=== PATIENT | female | born 1975 | race Caucasian/White ===

== ENCOUNTER 2023-08-22 09:07 | Outpatient (OUT) | payer BC, OTHER, SELFPAY ==
--- NOTE | 2023-08-22 09:11 | CT_ITS ---
The [address] [address] Patient Name: KEVEN ROBB MRN: [id number] date: 1975 Sex: F Assigned Patient Location: CT Current Patient Location: CT Accession/Order Number: [id number] Exam Date: 08/22/2023 10:15 Report Date: 08/22/2023 11:22 At the request of: NON-STAFF PHYSICIAN Procedure: CT abdomen pelvis w con EXAM: CT abdomen pelvis w con HISTORY: Diarrhea Unspecified R19.7, Nausea R11.2 COMPARISON: None. TECHNIQUE: Axial CT images were obtained of the abdomen and pelvis with intravenous contrast. Multiplanar reconstructions were performed. ABDOMEN/PELVIS FINDINGS: Lower Chest: Unremarkable. Liver: Hepatic steatosis is present. Biliary/Gallbladder: Unremarkable. Pancreas: Unremarkable. Spleen: Unremarkable. Adrenal Glands: Unremarkable. Kidneys: Unremarkable. Gastrointestinal/Peritoneum: No acute findings. There are no dilated loops of bowel. The appendix is unremarkable. No free air or free fluid. Vascular: Unremarkable. Lymph Nodes: No enlarged lymph nodes by CT size criteria. Pelvic Organs: Fallopian tube occlusion devices are present. Bladder: Unremarkable. Bones: No acute osseous abnormality. Advanced degenerative disc disease is present at L4-L5, otherwise no significant degenerative changes are present in the visualized spine. Soft tissues: There is a small fat-containing umbilical hernia. CT/CT abdomen pelvis w con IMPRESSION: 1. No acute abnormality of the abdomen and pelvis. 2. Hepatic steatosis. 3. Advanced degenerative disc disease at L4-L5, otherwise, no significant degenerative changes in the visualized spine. 4. Small fat-containing umbilical hernia. 5. Fallopian tube occlusion devices present. Electronically authenticated by: MERVAT QUEEN Date: 08/22/2023 11:22
[2023-08-22 11:20] LABS: Erythrocyte Sedimentation Rate 19 mm/hr (<=20)
[2023-08-22 12:28] LABS: Thyroid Stimulating Hormone 0.354 uIU/mL (0.358-3.740)
[2023-08-22 12:29] LABS: C Reactive Protein <0.50 mg/dL (<=0.50)
[2023-08-23 11:08] LABS: HIV Ab/p24 Ag Screen Non Reactive (Non Reactive)
[2023-08-23 15:08] LABS: Deamidated Gliadin Abs, IgA 5 units (0-19); Deamidated Gliadin Abs, IgG 2 units (0-19); Endomysial Antibody IgA Negative (Negative); Immunoglobulin A, Qn, Serum 104 mg/dL (87-352); t-Transglutaminase (tTG) IgA <2 U/mL (0-3); t-Transglutaminase (tTG) IgG <2 U/mL (0-5)
== END 2023-08-22 09:08 | disposition home or self-care (01) ==
LOC: CT 09:07
PROVIDERS: PCP Family Medicine
DX: R19.7 Diarrhea, unspecified (principal); R11.2 Nausea with vomiting, unspecified; R63.4 Abnormal weight loss; K76.0 Fatty (change of) liver, not elsewhere classified; K42.9 Umbilical hernia without obstruction or gangrene
CPT/HCPCS: 36415; 74177; 82784; 84443; 85652; 86140; 86231; 86258; 86364; 87389; Q9967

== ENCOUNTER 2023-08-26 15:16 | Outpatient (OUT) | payer BC, OTHER, SELFPAY ==
--- OUTSIDE RECORDS SUMMARY | 2023-08-26 15:19 | XMS_ITS | CCD ---
Author Name Unknown Address [address] [place] [address] Organization [facility] Care Team Providers Care Vac Press Operator Name Role Phone Unavailable Primary Care Provider Unavailbonifacio e BINDU MCCOLLUM Admitting Unavailable BINDU MCCOLLUM Attending Unavailable MISC, DR CALERO Primary Care Unavailable BINDU MCCOLLUM Consulting Unavailable BINDU MCCOLLUM Admitting Unavailable BINDU MCCOLLUM Attending Unavailable MISC, DR CALERO Primary Care Unavailable BINDU MCCOLLUM Consulting Unavailable DR MONSE JIMENEZ Admitting Unavailable BARBARA, DR MONSE Sage Attending Unavailable MISC, DR CALERO Primary Care Unavailable NADMARCELINO, DR MONSE Sage Consulting Unavailable Asaad, Imad Unavailable Allergies Allergy Classification Reported Allergen(s) Allergy Type Date of Onset Reaction(s) Facility (1 source) Codeine Drug Allergy 7 Hives, Vomiting [facility] (1 source) Codeine Drug Allergy 7 [facility] (1 source) Codeine Drug Allergy vomiting/hives [facility] Other (1 source) Codeine Drug Allergy hives [facility] Other Medications Current Medications Medication Drug Class(es) Dates Sig (Normalized) Sig (Original) acetaminophen 325 mg oral tablet (1 source) take 1 tablet by mouth every four hours Tylenol 325 MG 1 tablet as needed Orally every 4 hrs Active Lizz Allergy 180 MG (1 source) take 1 tablet by mouth once daily Lizz Allergy 180 MG 1 tablet Swallow whole with water; do not take with fruit juices. Orally Once a day Active famotidine 20 mg oral tablet (1 source) Histamine-2 Receptor Antagonist take 1 tablet by mouth every twenty-four hours Pepcid 20 MG 1 tablet at bedtime as needed Orally Once a day Active Completed/Discontinued Medications Medication Drug Class(es) Dates Sig (Normalized) Sig (Original) diphenhydrAMINE hydrochloride 25 mg oral tablet (1 source) Histamine-1 Receptor Antagonist take 1 tablet by mouth twice daily diphenhydrAMINE (DIPHEDRYL) 25 mg tablet Take 25 mg by mouth twice daily. 0 Active Comment on above: Take 25 mg by mouth twice daily. enteric contrast (will be provided with radiology test) (1 source) Start: 09-14-2019 enteric contrast (will be provided with radiology test) For CT CHESTABD/PEL W IVCON Routine order Administer, As Directed One Time Only, via Oral, Rectal, both Oral and Rectal, Enteric Tube, Stoma or Indwelling Catheter, Enteric Contrast as designated per enteric contrast guidelines 1 Each 0 09/14/2019 Active Comment on above: For CT CHESTABD/PEL W IVCON Routine order Administer, As Directed One Time Only, via Oral, Rectal, both Oral and Rectal, Enteric Tube, Stoma or Indwelling Catheter, Enteric Contrast as designated per enteric contrast guidelines ibuprofen 800 mg oral tablet (1 source) Nonsteroidal Anti-inflammatory Drug take 1 tablet by mouth every six hours as needed ibuprofen (MOTRIN) 800 mg tablet Take 800 mg by mouth every 6 hours as needed. 0 Active Comment on above: Take 800 mg by mouth every 6 hours as needed. iv contrast (will be provided with radiology test) (3 sources) Start: 01-18-2020 iv contrast (will be provided with radiology test) CT ABD/PEL -Inject, intravenously, once for 1 dose.No IV access, insert saline lock prior to the beginning of sedation, infusion, injection of imaging exam. Discontinue saline lock post exam. If Pt. has a central line or IVAD, may access for administration according to line specific nursing protocol. Once exam is complete flush line and de-access according to line specific nursing protocol in the CT contrast administration guidelines link. 1 Each 0 01/18/2020 Active Start: 01-18-2020 iv contrast (w ill be provided with radiology test) CT Chest W -Inject, intravenously, once for 1 dose.No IV access, insert saline lock prior to the beginning of sedation, infusion, injection of imaging exam. Discontinue saline lock post exam. If Pt. has a central line or IVAD, may access for administration according to line specific nursing protocol. Once exam is complete flush line and de-access according to line specific nursing protocol in the CT contrast administration guidelines link. 1 Each 0 01/18/2020 Active Start: 09-14-2019 iv contrast (w ill be provided with radiology test) CT Chest ABD/PEL-Inject, intravenously, once for 1 dose.No IV access, insert saline lock prior to the beginning of sedation, infusion, injection of imaging exam. Discontinue saline lock post exam. If Pt. has a central line or IVAD, may access for administration according to line specific nursing protocol. Once exam is complete flush line and de-access according to line specific nursing protocol in the CT contrast administration guidelines link. 1 Each 0 09/14/2019 Active Comment on above: CT Chest ABD/PEL-Inj ect, intravenously, once for 1 dose.No IV access, insert saline lock prior to the beginning of sedation, infusion, injection of imaging exam. Discontinue saline lock post exam. If Pt. has a central line or IVAD, may access for administration according to line specific nursing protocol. Once exam is complete flush line and de-access according to line specific nursing protocol in the CT contrast administration guidelines link. CT ABD/PEL -Inject, intravenously, once for 1 dose.No IV access, insert saline lock prior to the beginning of sedation, infusion, injection of imaging exam. Discontinue saline lock post exam. If Pt. has a central line or IVAD, may access for administration according to line specific nursing protocol. Once exam is complete flush line and de-access according to line specific nursing protocol in the CT contrast administration guidelines link. CT Chest W -Inject, intravenously, once for 1 dose.No IV access, insert saline lock prior to the beginning of sedation, infusion, injection of imaging exam. Discontinue saline lock post exam. If Pt. has a central line or IVAD, may access for administration according to line specific nursing protocol. Once exam is complete flush line and de-access according to line specific nursing protocol in the CT contrast administration guidelines link. Naproxen (1 source) Nonsteroidal Anti-inflammatory Drug naproxen (NAPROSYN ORAL) Take by mouth. 0 Active Comment on above: Take by mouth. Problems Active Problems Problem Classification Problem Date Documented Da te Episodic/Chronic Cancer of breast (3 sources) Malignant neoplasm of female breast; Translations: [Malignant neoplasm of unspecified site of unspecified female breast] Onset: 12-17-2016 12-17-2016 Chronic Cancer of breast (2 sources) Personal history of primary malignant neoplasm of breast; Translations: [Personal history of malignant neoplasm of breast] Episodic Complication of device; implant or graft (1 source) Late effect of medical and surgical care complication; Translations: [Breakdown (mechanical) of breast prosthesis and implant, sequela] Episodic Nausea and vomiting (2 sources) Nausea and vomiting; Translations: [Nausea with vomiting, unspecified] Episodic Nonmalignant breast conditions (1 source) Deformity of reconstructed breast; Translations: [Deformity of reconstructed breast] Episodic Other gastrointestinal disorders (1 source) Diarrhea; Translations: [Diarrhea, unspecified] Episodic Other gastrointestinal disorders (1 source) Diarrhea, unspecified Episodic Other nutritional; endocrine; and metabolic disorders (1 source) Weight decreased; Translations: [Abnormal weight loss] Episodic Other nutritional; endocrine; and metabolic disorders (1 source) Abnormal weight loss Episodic Residual codes; unclassified (1 source) Absence of breast; Translations: [Acquired absence of bilateral breasts and nipples] Episodic Residual codes; unclassified (1 source) Breast cancer genetic marker of susceptibility positive; Translations: [Genetic susceptibility to malignant neoplasm of breast] Episodic Unclassified (3 sources) CONTACT W/AND (SUSP) EXPOS COVID-19; Translations: [CONTACT W/AND (SUSP) EXPOS COVID-19] Onset: 09-29-2022 Past or Other Problems Problem Classification Problem Date Documented Da te Episodic/Chronic Unclassified (1 source) CONTACT W/AND (SUSP) EXPOS COVID-19; Translations: [CONTACT W/AND (SUSP) EXPOS COVID-19] Onset: 09-27-2022 Results Test Name Value Interpretation Reference Range Facil ity CBC AUTO DIFFon 01-07-2023 BASO # 0.1 103/ul Normal 0.0-0.1 [facility] Comment on above: Performed By: #### C BC #### [facility] [address] [place], [place] [address] Dr. Rosalva Cox Basophils/100 WBC (Bld) 0.8 % Normal 0.2-2.0 [facility] Comment on above: Performed By: #### C BC #### [facility] [address] [place], [place] [address] Dr. Rosalva Cox EO # 0.3 103/ul Normal 0.0-0.7 [facility] Comment on above: Performed By: #### C BC #### [facility] [address] [place] [address] Dr. Rosalva Cox Eosinophils/100 WBC (Bld) 3.9 % Normal 0.9-7.0 [facility] Comment on above: Performed By: #### C BC #### [facility] [address] [place] [address] Dr. Rosalva Cox Erythrocyte distribution width (RBC) [Ratio] 13.9 % Normal 11.0-15.0 [facility] Comment on above: Performed By: #### C BC #### [facility] [address] [place] [address] Dr. Rosalva Cox Hematocrit (Bld) [Volume fraction] 48.0 % Normal 36.0-48.0 [facility] Comment on above: Performed By: #### C BC #### [facility] [address] [place] [address] Dr. Rosalva Cox Hemoglobin (Bld) [Mass/Vol] 16.4 g/dL Critically high 12.0-16.0 [facility] Comment on above: Performed By: #### C BC #### [facility] [address] [place] [address] Dr. Rosalva Cox IG # 0.01 10e3/ul Normal 0.00-0.03 [facility] Comment on above: Performed By: #### C BC #### [facility] [address] [place] [address] Dr. Rosalva Cox IG % 0.1 % Normal 0.0-0.5 [facility] Comment on above: Performed By: #### C BC #### [facility] [address] [place] [address] Dr. Rosalva Cox LYMPH # 2.2 103/ul Normal 1.2-3.8 [facility] [place] [facility] Comment on above: Performed By: #### C BC #### [facility] [address] [place] [address] Dr. Rosalva Cox Lymphocytes/100 WBC (Bld) 27.4 % Normal 20.5-60.0 [facility] [place] [facility] Comment on above: Performed By: #### C BC #### [facility] [address] [place] [address] Dr. Rosalva Cox MANUAL DIFF REQ NO Normal [facility] Comment on above: Performed By: #### C BC #### [facility] [address] [place] [address] Dr. Rosalva Cox MCH (RBC) [Entitic mass] 32.4 pg Normal 26.7-34.0 [facility] Comment on above: Performed By: #### C BC #### [facility] [address] [place] [address] Dr. Rosalva Cox MCHC (RBC) [Mass/Vol] 34.2 g/dL Normal 29.9-35.2 [facility] Comment on above: Performed By: #### C BC #### [facility] [address] [place] [address] Dr. Rosalva Cox MCV (RBC) [Entitic vol] 94.9 fL Normal 81.0-99.0 [facility] Comment on above: Performed By: #### C BC #### [facility] [address] [place] [address] Dr. Rosalva Cox MONO # 0.3 103/ul Normal 0.3-0.8 [facility] Comment on above: Performed By: #### C BC #### [facility] [address] [place] [address] Dr. Rosalva Cox Monocytes/100 WBC (Bld) 4.0 % Normal 1.7-12.0 [facility] Comment on above: Performed By: #### C BC #### [facility] [address] [place] [address] Dr. Rosalva Cox NEUT # 5.1 103/ul Normal 1.4-6.5 [facility] [place] [facility] Comment on above: Performed By: #### C BC #### [facility] [address] [place] [address] Dr. Rosalva Cox Neutrophils/100 WBC (Bld) 63.8 % Normal 43.0-75.0 [facility] Comment on above: Performed By: #### C BC #### [facility] [address] [place] [address] Dr. Rosalva Cox Platelet mean volume (Bld) [Entitic vol] 10.2 fL Normal 9.5-13.5 [facility] Comment on above: Performed By: #### C BC #### [facility] [address] [place] [address] Dr. Rosalva Cox PLT 298 103/ul Normal 150-450 [facility] [place] [facility] Comment on above: Performed By: #### C BC #### [facility] [address] [place] [address] Dr. Rosalva Cox RBC 5.06 106/ul Normal 4.20-5.40 [facility] [place] [facility] Comment on above: Performed By: #### C BC #### [facility] [address] [place] [address] Dr. Rosalva Cox WBC 8.0 103/ul Normal 4.0-11.0 [facility] [place] [facility] Comment on above: Performed By: #### C BC #### [facility] [address] [place] [address] Dr. Rosalva Cox LIPID PROFILEon 01-07-2023 CHOL-HDL RATIO NORM SEE BELOW Normal [facility] [place] [facility] Comment on above: Result Comment: 3.3 - 4.4 LOW RISK 4.4 - 7.1 AVERAGE RISK 7.1 - 11.0 MODERATE RISK >11.0 HIGH RISK Performed By: #### T SH, T4, CMP, LIPID #### [facility] [address] [place] [address] Dr. Rosalva Cox Cholesterol [Mass/Vol] 215 mg/dL Critically high <=200 [facility] [place] [facility] Comment on above: Performed By: #### T SH, T4, CMP, LIPID #### [facility] [address] [place] [address] Dr. Rosalva Cox Cholesterol in HDL [Mass/Vol] 48 mg/dL Normal 40-60 [facility] [place] [facility] Comment on above: Performed By: #### T SH, T4, CMP, LIPID #### [facility] [address] [place] [address] Dr. Rosalva Cox Cholesterol in LDL [Mass/Vol] 95.6 mg/dL Normal [facility] Comment on above: Performed By: #### T SH, T4, CMP, LIPID #### [facility] [address] [address] [address] Rosalva Cox Cholesterol.total/ Cholesterol in HDL [Mass ratio] 4.5 {ratio} Normal [facility] Comment on above: Performed By: #### T SH, T4, CMP, LIPID #### [facility] [address] [address] [address] Rosalva Cox HDL NORMAL > or = 60 mg/dl - LO W CARDIOVASCULAR RISK <40 mg/dl - HIGH CARDIOVASCULAR RISK Normal [facility] Comment on above: Performed By: #### T SH, T4, CMP, LIPID #### [facility] [address] [address] [address] Rosalva Cox LDL CALC NORMAL SEE BELOW Normal [facility] Comment on above: Result Comment: <100 mg/dl OPTIMAL 100 - 129 mg/dl NEAR OR ABOVE OPTIMAL 130 - 159 mg/dl BORDERLINE HIGH 160 - 189 mg/dl HIGH >190 mg/dl VERY HIGH Performed By: #### T SH, T4, CMP, LIPID #### [facility] [address] [address] [address] Rosalva Cox Triglyceride [Mass/Vol] 357 mg/dL Critically high <=150 [facility] Comment on above: Performed By: #### T SH, T4, CMP, LIPID #### [facility] [address] [address] [address] Rosalva Cox VLDL CALC 71.4 mg/dL Normal [facility] Comment on above: Performed By: #### T SH, T4, CMP, LIPID #### [facility] [address] [address] [address] Rosalva Cox PROF 14(COMP METB)on 023 Albumin [Mass/Vol] 4.3 g/dL Normal 3.4-5.0 [facility] Comment on above: Performed By: #### T SH, T4, CMP, LIPID #### [facility] [address] [place] [address] Dr. Rosalva Cox Albumin/Globulin [Mass ratio] 1.0 {ratio} Normal [facility] Comment on above: Performed By: #### T SH, T4, CMP, LIPID #### [facility] [address] [address] [address] Rosalva Cox ALP [Catalytic activity/Vol] 158 U/L Critically high 46-116 [facility] Comment on above: Performed By: #### T SH, T4, CMP, LIPID #### [facility] [address] [place] [address] Dr. Rosalva Cox ALT [Catalytic activity/Vol] 64 U/L Critically high 14-59 [facility] Comment on above: Performed By: #### T SH, T4, CMP, LIPID #### [facility] [address] [place] [address] Dr. Rosalva Cox Anion gap [Moles/Vol] 12.7 mmol/L Normal [facility] Comment on above: Performed By: #### T SH, T4, CMP, LIPID #### [facility] [address] [place] [address] Dr. Rosalva Cox AST [Catalytic activity/Vol] 79 U/L Critically high 15-37 [facility] Comment on above: Performed By: #### T SH, T4, CMP, LIPID #### [facility] [address] [place] [address] Dr. Rosalva Cox Bilirubin [Mass/Vol] 0.6 mg/dL Normal 0.2-1.0 [facility] Comment on above: Performed By: #### T SH, T4, CMP, LIPID #### [facility] [address] [place] [address] Dr. Rosalva Cox Calcium [Mass/Vol] 9.7 mg/dL Normal 8.5-10.1 [facility] Comment on above: Performed By: #### T SH, T4, CMP, LIPID #### [facility] [address] [place] [address] Dr. Rosalva Cox Chloride [Moles/Vol] 102 mmol/L Normal 98-107 [facility] Comment on above: Performed By: #### T SH, T4, CMP, LIPID #### [facility] [address] [address] [address] Rosalva Cox CO2 [Moles/Vol] 30.3 mmol/L Normal 21.0-32.0 [facility] Comment on above: Performed By: #### T SH, T4, CMP, LIPID #### [facility] [address] [address] [address] Rosalva Cox Creatinine [Mass/Vol] 0.76 mg/dL Normal 0.55-1.02 [facility] Comment on above: Performed By: #### T SH, T4, CMP, LIPID #### [facility] [address] [address] [address] Rosalva Cox EGFR-AF ROMANIAN >60 Normal >=60 [facility] Comment on above: Performed By: #### T SH, T4, CMP, LIPID #### [facility] [address] [address] [address] Rosalva Cox EGFR-NON AF ROMANIAN >60 Normal >=60 [facility] Comment on above: Performed By: #### T SH, T4, CMP, LIPID #### [facility] [address] [address] [address] Rosalva Cox Globulin (S) [Mass/Vol] 4.3 g/dL Normal [facility] Comment on above: Performed By: #### T SH, T4, CMP, LIPID #### [facility] [address] [address] [address] Rosalva Cox Glucose [Mass/Vol] 112 mg/dL Critically high 74-106 [facility] Comment on above: Performed By: #### T SH, T4, CMP, LIPID #### [facility] [address] [address] [address] Rosalva Cox Potassium [Moles/Vol] 4.0 mmol/L Normal 3.5-5.1 [facility] Comment on above: Performed By: #### T SH, T4, CMP, LIPID #### [facility] [address] [address] [address] Rosalva Cox Protein [Mass/Vol] 8.6 g/dL Critically high 6.4-8.2 [facility] Comment on above: Performed By: #### T SH, T4, CMP, LIPID #### [facility] [address] [place] [address] Dr. Rosalva Cox Sodium [Moles/Vol] 141 mmol/L Normal 136-145 [facility] Comment on above: Performed By: #### T SH, T4, CMP, LIPID #### [facility] [address] [place] [address] Dr. Rosalva Cox Urea nitrogen [Mass/Vol] 17.0 mg/dL Normal 7.0-18.0 [facility] Comment on above: Performed By: #### T SH, T4, CMP, LIPID #### [facility] [address] [place] [address] Dr. Rosalva Cox Urea nitrogen/Creatinin e [Mass ratio] 22.4 mg/mg Normal [facility] Comment on above: Performed By: #### T SH, T4, CMP, LIPID #### [facility] [address] [place] [address] Dr. Rosalva Cox T4on 01-07-2023 T4 [Mass/Vol] 7.50 ug/dL Normal 4.80-13.90 [facility] Comment on above: Performed By: #### T SH, T4, CMP, LIPID #### [facility] [address] [place] [address] Dr. Rosalva Cox TSHon 01-07-2023 TSH 0.868 uIU/mL Normal 0.358-3.740 [facility] Comment on above: Performed By: #### T SH, T4, CMP, LIPID #### [facility] [address] [place] [address] Dr. Rosalva Cox INFLUENZA A AND B AGon 09-27 INFLUANEGH SEE BELOW Normal [facility] Comment on above: Result Comment: Nega tive for Flu A protein angiten. Infection due to Flu A cannot be ruled out. Flu A angiten in the sample may be below the detection limit of the test. Performed By: #### I NFLUAB #### [facility] [address] [address] [address] Rosalva Cox INFLUBNEGH SEE BELOW Normal [facility] Comment on above: Result Comment: Nega tive for Flu B protein antigen. Infection due to Flu B cannot be ruled out. Flu B antigen in the sample may be below the detection limit of the test. Performed By: #### I NFLUAB #### [facility] [address] [place] [address] Dr. Rosalva Cox INFLUENZA A AG Negative Normal NEGATIVE SEE COMMENT [facility] Comment on above: Performed By: #### I NFLUAB #### [facility] [address] [place] [address] Dr. Rosalva Cox INFLUENZA B AG Negative Normal NEGATIVE SEE COMMENT [facility] Comment on above: Performed By: #### I NFLUAB #### [facility] [address] [place] [address] Dr. Rosalva Cox [facility]06 SARS-CoV-2 (COVID-19) RNA VALERY+probe Ql (Unsp spec) Not detected Normal NOT DETECTED [facility] Comment on above: Result Comment: When diagnostic testing is negative, the possibility of a false negative should be considered in the context of a patient's recent exposures and the presence of clinical signs and symptoms consistent with SARS-CoV-2. This test is not yet approved or cleared by the [place] FDA. When there are no FDA-approved or cleared tests available, and other criteria are met, FDA can make tests available under an emergency access mechanism called an Emergency Use Authorization (EUA). The EUA for this test is supported by the [place] of Health and Human Service's declaration that circumstances exist to justify the emergency use of in vitro diagnostics for the detection and/or diagnosis of the virus that causes COVID-19. This EUA will remain in effect for the duration of the COVID-19 declaration justifying emergency of IVDs, unless it is terminated or revoked by the FDA (after which the test may no longer be used). Performed By: #### C VDTBH #### [facility] [address] [place] [address] Dr. Rosalva Bailey 02-18-2022 CNPN Telephone (HEMASA) KEVEN ROBB ([id number]) 1975 F Date Time Provider Department 02/18/22 ANNEMARIE NUNO During your visit today, we recorded the following information about you: Annemarie Nuno RN 02/18/2022 12:03 PM Signed Received call from pt requesting appt with Dr Vasques for new lump in right breast. Pt has not been seen since 09/2019 for history of breast cancer. ALEX: Ok to schedule pt to see you for new problem or would you like her to see her PCP. RONNELL Esparza MD 02/18/2022 8:02 PM Signed I will be happy to see her next week, Tuesday Gregoria Bob Sec 02/19/2022 9:20 AM Signed Called patient and her voice mail is full PSS please schedule patient for 30 min est patient new problem 11:30 Tuesday with brea have her here at 11:00 Camelia Lay Don 02/22/2022 8:30 AM Signed Tried calling patient AND spouse however, both vm are full. Efrain Vasques MD 02/22/2022 8:55 PM Signed Thanks Allergies As of Date: 02/18/2022 Noted Allergy Reaction CODEINE SULFATE 12/14/2016 4 - Hives 11 - Vomiting Date Reviewed: 09/14/2019 Reviewed by: Efrain Nance) Brea - Fully Assessed Reason for Visit: Appointment [186] Breast Problem [16] Prescriptions as of 02/23/2022 - iv contrast (will be provided with radiology test) CT ABD/PEL -Inject, intravenously, once for 1 dose.No IV access, insert saline lock prior to the beginning of sedation, infusion, injection of imaging exam. Discontinue saline lock post exam. If Pt. has a central line or IVAD, may access for administration according to line specific nursing protocol. Once exam is complete flush line and de-access according to line specific nursing protocol in the CT contrast administration guidelines link. - iv contrast (will be provided with radiology test) CT Chest W -Inject, intravenously, once for 1 dose.No IV access, insert saline lock prior to the beginning of sedation, infusion, injection of imaging exam. Discontinue saline lock post exam. If Pt. has a central line or IVAD, may access for administration according to line specific nursing protocol. Once exam is complete flush line and de-access according to line specific nursing protocol in the CT contrast administration guidelines link. - naproxen (NAPROSYN ORAL) Take by mouth. - diphenhydrAMINE (DIPHEDRYL) 25 mg tablet Take 25 mg by mouth twice daily. - iv contrast (will be provided with radiology test) CT Chest ABD/PEL-Inject, intravenously, once for 1 dose.No IV access, insert saline lock prior to the beginning of sedation, infusion, injection of imaging exam. Discontinue saline lock post exam. If Pt. has a central line or IVAD, may access for administration according to line specific nursing protocol. Once exam is complete flush line and de-access according to line specific nursing protocol in the CT contrast administration guidelines link. - enteric contrast (will be provided with radiology test) For CT CHESTABD/PEL W IVCON Routine order Administer, As Directed One Time Only, via Oral, Rectal, both Oral and Rectal, Enteric Tube, Stoma or Indwelling Catheter, Enteric Contrast as designated per enteric contrast guidelines - tamoxifen (NOLVADEX) 20 mg tablet Take 1 tablet (20 mg) by mouth once daily. - ibuprofen (MOTRIN) 800 mg tablet Take 800 mg by mouth every 6 hours as needed. Problem List As Of Date 02/18/2022 Noted Resolved Malignant neoplasm of female breast (HCC) [C50.*12/17/2016 Malignant neoplasm of upper-outer quadrant of r*12/21/2016 Encounter Status:Closed by ANNEMARIE GILLILAND on 02/23/22 Normal [facility] Vital Signs Date Time Vital Sign Value Performing Clinician Facility 07-26-2023 13:30-0500 Body height 172.72 cm Imad Asaad Other [facility] Other 07-26-2023 13:30-0500 Body mass index (BMI) [Ratio] 23.72 kg/m2 Imad Asaad Other [facility] Other 07-26-2023 13:30-0500 Body weight 70.76 kg Imad Asaad Other [facility] Other 07-26-2023 13:30-0500 Diastolic blood pressure 70 mm[Hg] Imad Asaad Other [facility] Other 07-26-2023 13:30-0500 Systolic blood pressure 118 mm[Hg] Imad Asaad Other [facility] Other Encounters Encounter Date Encounter Type Care Provider Facility Start: 07-26-2023 End: 07-26-2023 ambulatory Imad Asaad Other [facility] Other Start: 07-26-2023 Office outpatient ne w 45 minutes Imad Asaad [facility] Start: 01-07-2023 End: 01-08-[address] MONSE JIMENEZ Facility:[facility] Start: 09-27-2022 End: 09-27-2022 ambulatory BINDU MCCOLLUM Facility:[facility] Start: 09-26-2022 End: 09-26-2022 ambulatory BINDU MCCOLLUM Facility:[facility] Start: 02-18-2022 Telephone encounter Annemarie Nuno RN Hematology/Oncology Comment on above: Appointment; Breast Problem Plan of Treatment Date Care Activity Detail Author Start: 05-06-2022 Influenza vaccination INFLUENZA (Sea son Ended) [facility] Start: 2019 COLOGUARD (FIT-DNA) COLOGUARD (FIT-D NA) [facility] Start: 2019 Colonoscopy COLONOSCOPY [facility] Start: 2019 COLORECTAL CANCER SCREENING COLORECTAL CANCER SCREENING [facility] Start: [address] COLONOGRAPHY [facility] Start: 2019 DIABETES SCREEN DIABETES SCREEN [facility] Start: 2019 FECAL OCCULT BLOOD FECAL OCCULT BLOO D [facility] Start: 2019 LIPID SCREEN LIPID SCREEN [facility] Start: [address] [facility] Start: 2014 Mammography MAMMOGRAM [facility] Start: 2004 HPV TESTING HPV TESTING [facility] Start: 1995 PAP TESTING PAP TESTING [facility] Start: 1993 Urine microalbumin profile DTAP,TDAP ,TD (1 - Tdap) [facility] Start: 1992 HEPATITIS C SCREENING HEPATITIS C SC REENING [facility] Start: 1992 HIV SCREENING HIV SCREENING [facility] Start: 1986 Adult depression scr eening assessment DEPRESSION SCREENING [facility] Start: 1979 COVID-19 VACCINE (#1) COVID-19 VACCI NE (#1) [facility] Payers Date Payer Category Payer Unknown [id number] 2019 Unknown MMO MMO [employer] [id number] 2019-Present [phone] [address] [place] [address] PPO [id number] 1974 Unknown [id number] 1974 Unknown [id number] 1959 Self-pay 1959 Unknown [id number] Unknown [id number] Social History Date Type Detail Facility Start: 12-14-2016 Tobacco smoking status NHIS Smokes tobacco daily [facility] History of tobacco use Cigarette Smoker [facility] Start: 12-14-2016 Tobacco use and exposure Smokeless tobacco non-user [facility] Start: 09-14-2019 Alcohol intake Current non-dr agency service representative of alcohol (finding) [facility] Start: 1975 Sex Assigned At Not on file [facility] Sex Assigned At Sex Assigned At Bir th [facility] Other Evaluation note 07-26-2023 Note Date & Type Note Facility 07-26-2023 Evaluation note Encounter Date Diagnosis Assessment Notes Jul, Diarrhea (ICD-10 - R19.7) Jul, Nausea & vomiting (ICD-10 - R11.2) PATIENT HAS CHRONIC NAUSEA FOR YEARS. Jul, Weight loss, unintentional (ICD-10 - R63.4) PATIENT HAS [facility] Other Note 02-22-2022 Telephone Encounter - Efrain aVsques MD - 02/22/2022 8:55 PM EDTTelephone Encounter - Camelia Ochoa - 02/22/2022 8:27 AM EDTTelephone Encounter - Gregoria Ozuna - 02/19/2022 9:19 AM EDT Note Date & Type Note Facility 02-22-2022 Miscellaneous Notes Thanks Tried calling patient & spouse however, both vm are full. Called patient and her voice mail is full PSS please schedule patient for 30 min est patient new problem 11:30 Tuesday with brea have her here at 11:00 I will be happy to see her next week, Tuesday Received call from pt requesting appt with Dr Vasques for new lump in right breast. Pt has not been seen since 09/2019 for history of breast cancer. ALEX: Ok to schedule pt to see you for new problem or would you like her to see her PCP. Annemarie Nuno, RN documented in this encounter [facility] History general Narrative - Reported 11-02-2016 Note Date & Type Note Facility 11-02-2016 History general N arrative - Reported Type Medical History Breast cancer, right Surgical History essure Surgical History Lumpectomy 11/02/16 Surgical History breast reconstruction Surgical History right breast lumpect ashlee lymph node dissection 11/2016 Surgical History bilateral masectomy with tissue expanders insertion 04/2017 Surgical History bilateral mastectomy Surgical History bilateral breast reconstruction 04/2017 Surgical History 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/2017 Surgical History Breast implant surgery 08/2017 Surgical History Hospitalization History childbirth [facility] Other Summary Purpose Family History No Family History Records FoundNo Family History Records Found Advance Directives No Advanced Directives Records FoundNo Advanced Directives Records Found Additional Source Comments Source Comments (unrecognize d section and content) In the event this informatio n is protected by the Federal Confidentiality of Alcohol and Drug Abuse Patient Records regulations: The Federal rules restrict any use of the information to criminally investigate or prosecute any alcohol or drug abuse patient.[facility] Reason for Visit (unrecogniz ed section and content) PATIENT IS HERE WITH COMPLAI NTS OF DIARRHEA/NAUSEA/VOMITTING Reason Comments Appointment Breast Problem INFORMATION SOURCE (unrecogn ized section and content) DATE CREATED AUTHOR 02/24/2022 [facility] DATE CREATED AUTHOR 'S WILLIS ATION 01/08/2023 [facility] FOR RECORDS PERTAINING TO PATIENTS WHO ARE OR HAVE BEEN ENROLLED IN A CHEMICAL DEPENDENCY/SUBSTANCEABUSE PROGRAM, SOME INFORMATION MAY BE OMITTED. This clinical summary was aggregated from multiple sources. Caution should be exercised in using it in the provision of clinical care. This summary normalizes information from multiple sources, and as a consequence, information in this document may materially change the coding, format and clinical context of patient data. In addition, data may be omitted in some cases. CLINICAL DECISIONS SHOULD BE BASED ON THE PRIMARY CLINICAL RECORDS. [facility] [employer] [facility]. provides no warranty or guarantee of the accuracy or completeness of information in this document.
[2023-08-26 15:30] LABS: Basophils Absolute Auto 0.1 10^3/uL (0.0-0.1); Basophils Percent Auto 0.7 % (0.2-2.0); Eosinophils Absolute Auto 0.4 10^3/uL (0.0-0.7); Eosinophils Percent Auto 3.6 % (0.9-7.0); Hematocrit 43.2 % (36.0-48.0); Hemoglobin 14.7 g/dL (12.0-16.0); Immature Granulocytes Abs Auto 0.01 10^3/uL (0.00-0.03); Immature Granulocytes Pct Auto 0.1 % (0.0-0.5); Lymphocytes Absolute Auto 2.7 10^3/uL (1.2-3.8); Lymphocytes Percent Auto 25.1 % (20.5-60.0); Mean Corpuscular Hemoglobin 33.9 pg (26.7-34.0); Mean Corpuscular Volume 99.8 fL (81.0-99.0); Mean Platelet Volume 10.6 fL (9.5-13.5); Monocytes Absolute Auto 0.5 10^3/uL (0.3-0.8); Monocytes Percent Auto 4.5 % (1.7-12.0); Neutrophils Absolute Auto 7.1 10^3/uL (1.4-6.5); Platelet Count 292 10^3/uL (150-450); Red Blood Count 4.33 10^6/uL (4.20-5.40); Red Cell Distribution Width 14.1 % (11.0-15.0); White Blood Count 10.8 10^3/uL (4.0-11.0)
[2023-08-26 16:40] LABS: Free T4 0.76 ng/dL (0.76-1.46)
[2023-08-30 15:08] LABS: Thyroglobulin Antibody <1.0 IU/mL (0.0-0.9); Thyroid Peroxidase (TPO) Ab 10 IU/mL (0-34)
[2023-08-31 06:08] LABS: Thyrotropin Receptor Ab, Serum <1.10 IU/L (0.00-1.75)
== END 2023-08-26 15:17 | disposition home or self-care (01) ==
LOC: LAB 15:16
PROVIDERS: PCP Family Medicine; Visit Provider Family Medicine
DX: R79.89 Other specified abnormal findings of blood chemistry (principal); K13.0 Diseases of lips
CPT/HCPCS: 36415; 82607; 82746; 83540; 83550; 84432; 84439; 84481; 85025; 86376; 86800

== ENCOUNTER 2024-01-24 09:56 | Outpatient (OUT) | payer BC, OTHER, SELFPAY ==
--- OUTSIDE RECORDS SUMMARY | 2024-01-24 10:21 | XMS_ITS | CCD ---
Author Organization [facility] Care Team Providers Care Washing Machine Loader And Puller Name Role Phone Unavailable Primary Care Provider UnavailBINDU Talbot Admitting Unavailable BINDU MCCOLLUM Attending Unavailable MISC, DR CALERO Primary Care Unavailable BINDU MCCOLLUM Consulting Unavailable BINDU MCCOLLUM Admitting Unavailable BINDU MCCOLLUM Attending Unavailable MISC, DR CALERO Primary Care Unavailable BINDU MCCOLLUM Consulting Unavailable DR MONSE JIMENEZ Admitting Unavailable BARBARA, DR MONSE Sage Attending Unavailable JAMEEC, DR CALERO Primary Care Unavailable BARBARA, DR MONSE Sage Consulting Unavailable Asaad, Imad Unavailable MONSE JIMENEZ Attending Unavailable MONSE JIMENEZ Attending Unavailable Allergies Allergy Classification Reported Allergen(s) Allergy Type Date of Onset Reaction(s) Facility (1 source) Codeine Drug Allergy 7 Hives, Vomiting [facility] (1 source) Codeine Drug Allergy 7 [facility] (1 source) Codeine Drug Allergy vomiting/hives [facility] Other (1 source) Codeine Drug Allergy hives [facility] [place] Other Medications Current Medications Medication Drug Class(es) [...] 01-07-2023 BASO # 0.1 103/ul Normal 0.0-0.1 [facility] Comment on above: Performed By: #### C BC #### [facility] [address] [address] [address] Rosalva Cox Basophils/100 WBC (Bld) 0.8 % Normal 0.2-2.0 [facility] Comment on above: Performed By: #### C BC #### [facility] [address] [place], [place] [address] Dr. Rosalva Cox EO # 0.3 103/ul Normal 0.0-0.7 [facility] Comment on above: Performed By: #### C BC #### [facility] [address] [place] [address] Dr. Rosalva Cox Eosinophils/100 WBC (Bld) 3.9 % Normal 0.9-7.0 [facility] Comment on above: Performed By: #### C BC #### [facility] [address] [place] [address] Dr. Rosalva Cox Erythrocyte distribution width (RBC) [Ratio] 13.9 % Normal 11.0-15.0 [facility] Comment on above: Performed By: #### C BC #### [facility] [address] [place] [address] Dr. Rosalva Cox Hematocrit (Bld) [Volume fraction] 48.0 % Normal 36.0-48.0 [facility] Comment on above: Performed By: #### C BC #### [facility] [address] [place] [address] Dr. Rosalva Cox Hemoglobin (Bld) [Mass/Vol] 16.4 g/dL Critically high 12.0-16.0 [facility] Comment on above: Performed By: #### C BC #### [facility] [address] [place] [address] Dr. Rosalva Cox IG # 0.01 10e3/ul Normal 0.00-0.03 [facility] Comment on above: Performed By: #### C BC #### [facility] [address] [place] [address] Dr. Rosalva Cox IG % 0.1 % Normal 0.0-0.5 [facility] Comment on above: Performed By: #### C BC #### [facility] [address] [place] [address] Dr. Rosalva Cox LYMPH # 2.2 103/ul Normal 1.2-3.8 [facility] Comment on above: Performed By: #### C BC #### [facility] [address] [place] [address] Dr. Rosalva Cox Lymphocytes/100 WBC (Bld) 27.4 % Normal 20.5-60.0 [facility] Comment on above: Performed By: #### C BC #### [facility] [address] [place] [address] Dr. Rosalva Cox MANUAL DIFF REQ NO Normal [facility] Comment on above: Performed By: #### C BC #### [facility] [address] [place] [address] Dr. Rosalva Cox MCH (RBC) [Entitic mass] 32.4 pg Normal 26.7-34.0 [facility] Comment on above: Performed By: #### C BC #### [facility] [address] [place] [address] Dr. Rosalva Cox MCHC (RBC) [Mass/Vol] 34.2 g/dL Normal 29.9-35.2 [facility] Comment on above: Performed By: #### C BC #### [facility] [address] [place] [address] Dr. Rosalva Cox MCV (RBC) [Entitic vol] 94.9 fL Normal 81.0-99.0 [facility] Comment on above: Performed By: #### C BC #### [facility] [address] [place] [address] Dr. Rosalva Cox MONO # 0.3 103/ul Normal 0.3-0.8 [facility] Comment on above: Performed By: #### C BC #### [facility] [address] [place] [address] Dr. Rosalva Cox Monocytes/100 WBC (Bld) 4.0 % Normal 1.7-12.0 [facility] Comment on above: Performed By: #### C BC #### [facility] [address] [place] [address] Dr. Rosalva Cox NEUT # 5.1 103/ul Normal 1.4-6.5 [facility] Comment on above: Performed By: #### C BC #### [facility] [address] [place] [address] Dr. Rosalva Cox Neutrophils/100 WBC (Bld) 63.8 % Normal 43.0-75.0 [facility] Comment on above: Performed By: #### C BC #### [facility] [address] [address] [address] Rosalva Cox Platelet mean volume (Bld) [Entitic vol] 10.2 fL Normal 9.5-13.5 [facility] Comment on above: Performed By: #### C BC #### [facility] [address] [address] [address] Rosalva Cox PLT 298 103/ul Normal 150-450 [facility] Comment on above: Performed By: #### C BC #### [facility] [address] [address] [address] Rosalva Cox RBC 5.06 106/ul Normal 4.20-5.40 [facility] Comment on above: Performed By: #### C BC #### [facility] [address] [place] [address] Dr. Rosalva Cox WBC 8.0 103/ul Normal 4.0-11.0 [facility] Comment on above: Performed By: #### C BC #### [facility] [address] [place] [address] Dr. Rosalva Cox LIPID PROFILEon 01-07-2023 CHOL-HDL RATIO NORM SEE BELOW Normal [facility] Comment on above: Result Comment: 3.3 - 4.4 LOW RISK 4.4 - 7.1 AVERAGE RISK 7.1 - 11.0 MODERATE RISK >11.0 HIGH RISK Performed By: #### T SH, T4, CMP, LIPID #### [facility] [address] [place] [address] Dr. Rosalva Cox Cholesterol [Mass/Vol] 215 mg/dL Critically high <=200 [facility] Comment on above: Performed By: #### T SH, T4, CMP, LIPID #### [facility] [address] [place] [address] Dr. Rosalva Cox Cholesterol in HDL [Mass/Vol] 48 mg/dL Normal 40-60 [facility] Comment on above: Performed By: #### T SH, T4, CMP, LIPID #### [facility] [address] [place] [address] Dr. Rosalva Cox Cholesterol in LDL [Mass/Vol] 95.6 mg/dL Normal [facility] Comment on above: Performed By: #### T SH, T4, CMP, LIPID #### [facility] [address] [address] [address] Rosalva Cox Cholesterol.total/ Cholesterol in HDL [Mass ratio] 4.5 {ratio} Normal [facility] Comment on above: Performed By: #### T SH, T4, CMP, LIPID #### [facility] [address] [address] [address] Rosalva Cox HDL NORMAL > or = 60 mg/dl - LO W CARDIOVASCULAR RISK <40 mg/dl - HIGH CARDIOVASCULAR RISK Normal [facility] Comment on above: Performed By: #### T SH, T4, CMP, LIPID #### [facility] [address] [address] [address] Rosalva Cox LDL CALC NORMAL SEE BELOW Normal [facility] Comment on above: Result Comment: <100 mg/dl OPTIMAL 100 - 129 mg/dl NEAR OR ABOVE OPTIMAL 130 - 159 mg/dl BORDERLINE HIGH 160 - 189 mg/dl HIGH >190 mg/dl VERY HIGH Performed By: #### T SH, T4, CMP, LIPID #### [facility] [address] [address] [address] Rosalva Cox Triglyceride [Mass/Vol] 357 mg/dL Critically high <=150 [facility] Comment on above: Performed By: #### T SH, T4, CMP, LIPID #### [facility] [address] [address] [address] Rosalva Cox VLDL CALC 71.4 mg/dL Normal [facility] Comment on above: Performed By: #### T SH, T4, CMP, LIPID #### [facility] [address] [address] [address] Rosalva Cox PROF 14(COMP METB)on 023 Albumin [Mass/Vol] 4.3 g/dL Normal 3.4-5.0 [facility] Comment on above: Performed By: #### T SH, T4, CMP, LIPID #### [facility] [address] [address] [address] Rosalva Cox Albumin/Globulin [Mass ratio] 1.0 {ratio} Normal [facility] Comment on above: Performed By: #### T SH, T4, CMP, LIPID #### [facility] [address] [address] [address] Rosalva Cox ALP [Catalytic activity/Vol] 158 U/L Critically high 46-116 [facility] Comment on above: Performed By: #### T SH, T4, CMP, LIPID #### [facility] [address] [address] [address] Roaslva Cox ALT [Catalytic activity/Vol] 64 U/L Critically high 14-59 [facility] Comment on above: Performed By: #### T SH, T4, CMP, LIPID #### [facility] [address] [place] [address] Dr. Rosalva Cox Anion gap [Moles/Vol] 12.7 mmol/L Normal [facility] Comment on above: Performed By: #### T SH, T4, CMP, LIPID #### [facility] [address] [address] [address] Rosalva Cox AST [Catalytic activity/Vol] 79 U/L Critically high 15-37 [facility] Comment on above: Performed By: #### T SH, T4, CMP, LIPID #### [facility] [address] [address] [address] Rosalva Cox Bilirubin [Mass/Vol] 0.6 mg/dL Normal 0.2-1.0 [facility] Comment on above: Performed By: #### T SH, T4, CMP, LIPID #### [facility] [address] [address] [address] Rosalva Cox Calcium [Mass/Vol] 9.7 mg/dL Normal 8.5-10.1 [facility] Comment on above: Performed By: #### T SH, T4, CMP, LIPID #### [facility] [address] [address] [address] Rosalva Cox Chloride [Moles/Vol] 102 mmol/L Normal 98-107 [facility] Comment on above: Performed By: #### T SH, T4, CMP, LIPID #### [facility] [address] [address] [address] Rosalva Cox CO2 [Moles/Vol] 30.3 mmol/L Normal 21.0-32.0 [facility] Comment on above: Performed By: #### T SH, T4, CMP, LIPID #### [facility] [address] [address] [address] Rosalva Cox Creatinine [Mass/Vol] 0.76 mg/dL Normal 0.55-1.02 [facility] Comment on above: Performed By: #### T SH, T4, CMP, LIPID #### [facility] [address] [address] [address] Rosalva Cox EGFR-AF JORDANIAN >60 Normal >=60 [facility] Comment on above: Performed By: #### T SH, T4, CMP, LIPID #### [facility] [address] [address] [address] Rosalva Cox EGFR-NON AF JORDANIAN >60 Normal >=60 [facility] Comment on above: Performed By: #### T SH, T4, CMP, LIPID #### [facility] [address] [address] [address] Rosalva Cox Globulin (S) [Mass/Vol] 4.3 g/dL Normal [facility] Comment on above: Performed By: #### T SH, T4, CMP, LIPID #### [facility] [address] [address] [address] Rsoalva Cox Glucose [Mass/Vol] 112 mg/dL Critically high 74-106 [facility] Comment on above: Performed By: #### T SH, T4, CMP, LIPID #### [facility] [address] [address] [address] Rosalva Cox Potassium [Moles/Vol] 4.0 mmol/L Normal 3.5-5.1 [facility] Comment on above: Performed By: #### T SH, T4, CMP, LIPID #### [facility] [address] [address] [address] Rosalva Cox Protein [Mass/Vol] 8.6 g/dL Critically high 6.4-8.2 [facility] Comment on above: Performed By: #### T SH, T4, CMP, LIPID #### [facility] [address] [place] [address] Dr. Rosalva Cox Sodium [Moles/Vol] 141 mmol/L Normal 136-145 [facility] Comment on above: Performed By: #### T SH, T4, CMP, LIPID #### [facility] [address] [address] [address] Rosalva Cox Urea nitrogen [Mass/Vol] 17.0 mg/dL Normal 7.0-18.0 [facility] Comment on above: Performed By: #### T SH, T4, CMP, LIPID #### [facility] [address] [place] [address] Dr. Rosalva Cox Urea nitrogen/Creatinin e [Mass ratio] 22.4 mg/mg Normal [facility] Comment on above: Performed By: #### T SH, T4, CMP, LIPID #### [facility] [address] [place] [address] Dr. Rosalva Cox T4on 01-07-2023 T4 [Mass/Vol] 7.50 ug/dL Normal 4.80-13.90 [facility] Comment on above: Performed By: #### T SH, T4, CMP, LIPID #### [facility] [address] [place] [address] Dr. Rosalva Cox TSHon 01-07-2023 TSH 0.868 uIU/mL Normal 0.358-3.740 [facility] Comment on above: Performed By: #### T SH, T4, CMP, LIPID #### [facility] [address] [place] [address] Dr. Rosalva Cox INFLUENZA A AND B AGon 09-27 INFLUANEGH SEE BELOW Normal [facility] Comment on above: Result Comment: Nega tive for Flu A protein angiten. Infection due to Flu A cannot be ruled out. Flu A angiten in the sample may be below the detection limit of the test. Performed By: #### I NFLUAB #### [facility] [address] [place] [address] Dr. Rosalva Cox INFLUBNEGH SEE BELOW Normal [facility] Comment on above: Result Comment: Nega tive for Flu B protein antigen. Infection due to Flu B cannot be ruled out. Flu B antigen in the sample may be below the detection limit of the test. Performed By: #### I NFLUAB #### [facility] [address] [place] [address] Dr. Rosalva Cox INFLUENZA A AG Negative Normal NEGATIVE SEE COMMENT [facility] Comment on above: Performed By: #### I NFLUAB #### [facility] [address] [place] [address] Dr. Rosalva Cox INFLUENZA B AG Negative Normal NEGATIVE SEE COMMENT [facility] Comment on above: Performed By: #### I NFLUAB #### [facility] [address] [place] [address] Dr. Rosalva Cox [facility]06 SARS-CoV-2 (COVID-19) RNA VALERY+probe Ql (Unsp spec) Not detected Normal NOT DETECTED [facility] Comment on above: Result Comment: When diagnostic [...] for this test is supported by the [place] of Health and Human Service's declaration that [...] used). Performed By: #### C VDTBH #### [facility] [address] [place] [address] Dr. Rosalva Bailey 02-18-2022 CNPN Telephone (HEMASA) CEAZRKEVEN Rodger ([id number]) 1975 F Date Time Provider Department 02/18/22 [...] brea have her here at 11:00 Camelia Ochoa 02/22/2022 8:30 AM Signed Tried calling patient [...] Status:Closed by ANNEMARIE GILLILAND on 02/23/22 Normal [facility] Vital Signs Date Time Vital Sign Value Performing Clinician Facility 07-26-2023 13:30-0500 Body height 172.72 cm Imad Asaad Other [facility] Other 07-26-2023 13:30-0500 Body mass index (BMI) [Ratio] 23.72 kg/m2 Imad Asaad Other [facility] Other 07-26-2023 13:30-0500 Body weight 70.76 kg Imad Asaad Other [facility] Other 07-26-2023 13:30-0500 Diastolic blood pressure 70 mm[Hg] Imad Asaad Other [facility] Other 07-26-2023 13:30-0500 Systolic blood pressure 118 mm[Hg] Imad Asaad Other [facility] Other Encounters Encounter Date Encounter Type Care Provider Facility Start: 09-20-2023 End: 09-20-2023 ambulatory MONSE JIMENEZ Not Available Start: 08-23-2023 End: 08-23-2023 ambulatory MONSE JIMENEZ Not Available Start: 07-26-2023 End: 07-26-2023 ambulatory Imad Asaad Other [facility] Other Start: 07-26-2023 Office outpatient ne w [...] 05-06-2022 Influenza vaccination INFLUENZA (Sea son Ended) [facility] Start: 2019 COLOGUARD (FIT-DNA) COLOGUARD (FIT-D NA) [facility] Start: 2019 Colonoscopy COLONOSCOPY [facility] Start: 2019 COLORECTAL CANCER SCREENING COLORECTAL CANCER SCREENING [facility] Start: [address] COLONOGRAPHY [facility] Start: 2019 DIABETES SCREEN DIABETES SCREEN [facility] Start: 2019 FECAL OCCULT BLOOD FECAL OCCULT BLOO D [facility] Start: 2019 LIPID SCREEN LIPID SCREEN [facility] Start: 2019 SIGMOIDOSCOPY SIGMOIDOSCOPY [facility] Start: 2014 Mammography MAMMOGRAM [facility] Start: 2004 HPV TESTING HPV TESTING [facility] Start: 1995 PAP TESTING PAP TESTING [facility] Start: 1993 Urine microalbumin profile DTAP,TDAP ,TD (1 - Tdap) [facility] Start: 1992 HEPATITIS C SCREENING HEPATITIS C SC REENING [facility] Start: 1992 HIV SCREENING HIV SCREENING [facility] Start: 1986 Adult depression scr eening assessment DEPRESSION SCREENING [facility] Start: 1979 COVID-19 VACCINE (#1) COVID-19 VACCI NE (#1) [facility] Payers Date Payer Category Payer Unknown [id number] 2019 Unknown MMO MMO [employer] [id number] 2019-Present [phone] [address] [place] [address] PPO [id number] 1975 Unknown [id number] 1975 Unknown [id number] 1975 Unknown [id number] 1975 Unknown [id number] 1960 Self-pay 1960 Unknown [id number] Unknown [id number] Social History Date Type Detail Facility Start: 12-14-2016 Tobacco smoking status NHIS Smokes tobacco daily [facility] History of tobacco use Cigarette Smoker [facility] Start: 12-14-2016 Tobacco use and exposure Smokeless tobacco non-user [facility] Start: 09-14-2019 Alcohol intake Current non-dr projector operator of alcohol (finding) [facility] Start: 1975 Sex Assigned At Not on file [facility] Sex Assigned At Sex Assigned At [facility] Other Evaluation note 07-26-2023 Note Date & Type Note Facility 07-26-2023 Evaluation note Encounter Date Diagnosis Assessment Notes Jul, Diarrhea (ICD-10 - R19.7) Jul, Nausea & vomiting (ICD-10 - R11.2) PATIENT HAS CHRONIC NAUSEA FOR YEARS. Jul, Weight loss, unintentional (ICD-10 - R63.4) PATIENT HAS [facility] Other Note 02-22-2022 Telephone Encounter - Efrain Vasques MD - 02/22/2022 8:55 PM EDTTelephone Encounter - Camelia Ochoa - 02/22/2022 8:27 AM EDTTelephone Encounter - Gregoria Bob Sec - 02/19/2022 9:19 AM EDT Note Date [...] like her to see her PCP. Annemarie Nuno RN documented in this encounter [facility] History general Narrative - Reported 11-02-2016 Note [...] breast reconstruction 04/2017 Surgical History Right breast adult health clinical nurse specialist replaced 04/2017 Surgical History Breast implant surgery 08/2017 Surgical History Hospitalization History childbirth [facility] Other Summary Purpose Family History No Family History Records FoundNo Family History Records FoundNo Family History Records Found Advance Directives No Advanced Directives Records FoundNo Advanced Directives Records FoundNo Advanced Directives Records Found Additional Source Comments Source Comments (unrecognize d section and content) In the event this informatio n is protected by the Federal Confidentiality of Alcohol and Drug Abuse Patient Records regulations: The Federal rules restrict any use of the information to criminally investigate or prosecute any alcohol or drug abuse patient.[facility] Reason for Visit (unrecogniz ed section and content) Reason Comments Appointment Breast Problem INFORMATION SOURCE (unrecogn ized section and content) DATE CREATED AUTHOR 02/24/2022 [facility] DATE CREATED AUTHOR AUTHOR'S ORGANIZ ATION 01/08/[address] [facility] DATE CREATED AUTHOR AUTHOR'S ORGANIZ ATION 09/21/2023 [facility] FOR RECORDS PERTAINING TO PATIENTS WHO ARE [...] BE BASED ON THE PRIMARY CLINICAL RECORDS. [employer] provides no warranty or guarantee of the accuracy or completeness of information in this document.
--- NOTE | 2024-01-24 10:25 | XR_ITS ---
The [address] [address] Patient Name: KEVEN ROBB MRN: [id number] date: 1975 Sex: F Assigned Patient Location: [facility] Current Patient Location: Accession/Order Number: [id number] Exam Date: 01/24/2024 10:18 Report Date: 01/25/2024 06:02 At the request of: MONSE JIMENEZ Procedure: XR cervical spine 2-3V EXAMINATION: XR cervical spine 2-3V HISTORY: Chronic neck pain M54.2,G89.29 ; acute neck and right arm pain COMPARISON: No relevant comparison available. FINDINGS: BONES: Reversal normal lordotic curvature. Mild grade 1 retrolisthesis of C5 on C6. Mild degenerative facet arthropathy. No fracture or abnormal joint space widening. DISC SPACES: Mild narrowing C3-C4. Moderate narrowing C5-C6, C6-C7, C7-T1. Prominent endplate sclerosis C5 and C6. PARASPINOUS: Negative. No paraspinous abnormality is seen. OTHER: Negative. XR/XR cervical spine 2-3V IMPRESSION: 1. No appreciable acute abnormality. No comparison studies. 2. Moderate to marked degenerative disc disease of cervical spine. Electronically authenticated by: JOSE ENRIQUEZ Date: 01/25/2024 06:02
== END 2024-01-24 09:57 | disposition home or self-care (01) ==
LOC: RAD 09:57
PROVIDERS: PCP Family Medicine; Visit Provider Family Medicine
DX: M54.2 Cervicalgia (principal); G89.29 Other chronic pain
CPT/HCPCS: 72040

== ENCOUNTER 2024-05-01 11:18 | Outpatient (OUT) | payer BC, OTHER, SELFPAY ==
--- NOTE | 2024-05-01 11:24 | XR_ITS ---
The [address] [address] Patient Name: KEVEN ROBB MRN: [id number] date: 1975 Sex: F Assigned Patient Location: RAD Current Patient Location: RAD Accession/Order Number: [id number] Exam Date: 05/01/2024 11:25 Report Date: 05/01/2024 11:50 At the request of: NEERAJ LYNN Procedure: XR chest 2V EXAMINATION: XR chest 2V HISTORY: Pleurisy R09.1 COMPARISON: 12/04/2019 TECHNIQUE: PA and lateral FINDINGS: LUNGS: No significant pulmonary parenchymal abnormalities. VASCULATURE: No increased pulmonary vasculature. PLEURA: No pneumothorax, effusion, or pleural thickening. CARDIAC: No cardiomegaly or cardiac silhouette abnormality. MEDIASTINUM: No visible mass or adenopathy. BONES: No fracture or visible bone lesion. OTHER: Breast implants. XR/XR chest 2V IMPRESSION: No acute cardiopulmonary process Electronically authenticated by: JANELLE ALDRICH Date: 05/01/2024 11:50
--- OUTSIDE RECORDS SUMMARY | 2024-05-01 11:26 | XMS_ITS | CCD ---
Author Organization [facility] Care Team Providers Care Field Account Manager Name Role Phone Unavailable Primary Care Provider Unavailabl e VEDACASEY DHILLONA Admitting Unavailable VEDABINDU DHILLON Attending Unavailable MISC, DR CALERO Primary Care Unavailable VEDABINDU TRUJILLO Consulting Unavailable VEDABINDU TRUJILLO Admitting Unavailable VEDABINDU DHILLON Attending Unavailable MISC, DR CALERO Primary Care Unavailable VEDABINDU DHILLON Consulting Unavailable NADERESayda, DR MONSE Sage Admitting Unavailable NADERER, DR MONSE Sage Attending Unavailable MISC, DR CALERO Primary Care Unavailable NADERER, DR MONSE Sage Consulting Unavailable Asaad, Imad Unavailable MONSE JIMENEZ Attending Unavailable NADERER, MONSE Attending Unavailable NADERER, MONSE Attending Unavailable NADERER, MONSE Attending Unavailable Allergies Allergy Classification Reported Allergen(s) Allergy Type Date of Onset Reaction(s) Facility (1 source) Codeine Drug Allergy 7 Hives, Vomiting [facility] (1 source) Codeine Drug Allergy 7 [facility] (1 source) Codeine Drug Allergy vomiting/hives [facility] [employer] Other (1 source) Codeine Drug Allergy hives [facility] [employer] Other Medications Current Medications Medication Drug Class(es) [...] 01-07-2023 BASO # 0.1 103/ul Normal 0.0-0.1 [facility] Comment on above: Performed By: #### C BC #### [facility] [address] [place] [address] Dr. Rosalva Cox Basophils/100 WBC (Bld) 0.8 % Normal 0.2-2.0 [facility] Comment on above: Performed By: #### C BC #### [facility] [address] [place] [id number] Rosalva Cox EO # 0.3 103/ul Normal 0.0-0.7 [facility] Comment on above: Performed By: #### C BC #### [facility] [address] [place] [address] Dr. Rosalva Cox Eosinophils/100 WBC (Bld) 3.9 % Normal 0.9-7.0 [facility] Comment on above: Performed By: #### C BC #### [facility] [address] [place] [address] Dr. Rosalva Cox Erythrocyte distribution width (RBC) [Ratio] 13.9 % Normal 11.0-15.0 [facility] Comment on above: Performed By: #### C BC #### [facility] [address] [place] [address] Dr. Rosalva Cox Hematocrit (Bld) [Volume fraction] 48.0 % Normal 36.0-48.0 [facility] Comment on above: Performed By: #### C BC #### [facility] [address] [place] [address] Dr. Rosalva Cox Hemoglobin (Bld) [Mass/Vol] 16.4 g/dL Critically high 12.0-16.0 [facility] Comment on above: Performed By: #### C BC #### [facility] [address] [place] [address] Dr. Rosalva Cox IG # 0.01 10e3/ul Normal 0.00-0.03 [facility] Comment on above: Performed By: #### C BC #### [facility] [address] [place] [address] Dr. Rosalva Cox IG % 0.1 % Normal 0.0-0.5 [facility] Comment on above: Performed By: #### C BC #### [facility] [address] [place] [address] Dr. Rosalva Cox LYMPH # 2.2 103/ul Normal 1.2-3.8 [facility] Comment on above: Performed By: #### C BC #### [facility] [address] [place] [address] Dr. Rosalva Cox Lymphocytes/100 WBC (Bld) 27.4 % Normal 20.5-60.0 [facility] Comment on above: Performed By: #### C BC #### [facility] [address] [place] [address] Dr. Rosalva Cox MANUAL DIFF REQ NO Normal [facility] Comment on above: Performed By: #### C BC #### [facility] [address] [place] [address] Dr. Rosalva Cox MCH (RBC) [Entitic mass] 32.4 pg Normal 26.7-34.0 [facility] Comment on above: Performed By: #### C BC #### [facility] [address] [place] [address] Dr. Rosalva Cox MCHC (RBC) [Mass/Vol] 34.2 g/dL Normal 29.9-35.2 [facility] Comment on above: Performed By: #### C BC #### [facility] [address] [place] [address] Dr. Rosalva Cox MCV (RBC) [Entitic vol] 94.9 fL Normal 81.0-99.0 [facility] Comment on above: Performed By: #### C BC #### [facility] [address] [place] [address] Dr. Rosalva Cox MONO # 0.3 103/ul Normal 0.3-0.8 [facility] Comment on above: Performed By: #### C BC #### [facility] [address] [place] [address] Dr. Rosalva Cox Monocytes/100 WBC (Bld) 4.0 % Normal 1.7-12.0 [facility] Comment on above: Performed By: #### C BC #### [facility] [address] [place] [address] Dr. Rosalva Cox NEUT # 5.1 103/ul Normal 1.4-6.5 [facility] Comment on above: Performed By: #### C BC #### [facility] [address] [place] [address] Dr. Rosalva Cox Neutrophils/100 WBC (Bld) 63.8 % Normal 43.0-75.0 [facility] Comment on above: Performed By: #### C BC #### [facility] [address] [address] [address] Rosalva Cox Platelet mean volume (Bld) [Entitic vol] 10.2 fL Normal 9.5-13.5 [facility] Comment on above: Performed By: #### C BC #### [facility] [address] [address] [address] Rosalva Cox PLT 298 103/ul Normal 150-450 [facility] Comment on above: Performed By: #### C BC #### [facility] [address] [address] [address] Rosalva Cox RBC 5.06 106/ul Normal 4.20-5.40 [facility] Comment on above: Performed By: #### C BC #### [facility] [address] [place] [address] Dr. Rosalva Cox WBC 8.0 103/ul Normal 4.0-11.0 [facility] Comment on above: Performed By: #### C BC #### [facility] [address] [place] [address] Dr. Rosalva Cox LIPID PROFILEon 01-07-2023 CHOL-HDL RATIO NORM SEE BELOW Normal [facility] Comment on above: Result Comment: 3.3 - 4.4 LOW RISK 4.4 - 7.1 AVERAGE RISK 7.1 - 11.0 MODERATE RISK >11.0 HIGH RISK Performed By: #### T SH, T4, CMP, LIPID #### [facility] [address] [place] [address] Dr. Rosalva Cox Cholesterol [Mass/Vol] 215 mg/dL Critically high <=200 [facility] Comment on above: Performed By: #### T SH, T4, CMP, LIPID #### [facility] [address] [place] [address] Dr. Rosalva Cox Cholesterol in HDL [Mass/Vol] 48 mg/dL Normal 40-60 [facility] Comment on above: Performed By: #### T SH, T4, CMP, LIPID #### [facility] [address] [address] [address] Rosalva Cox Cholesterol in LDL [Mass/Vol] 95.6 mg/dL Normal [facility] Comment on above: Performed By: #### T SH, T4, CMP, LIPID #### [facility] [address] [address] [address] Rosalva Cox Cholesterol.total/ Cholesterol in HDL [Mass ratio] 4.5 {ratio} Normal [facility] Comment on above: Performed By: #### T SH, T4, CMP, LIPID #### [facility] [address] [address] [address] Rosalva Cox HDL NORMAL > or = 60 mg/dl - LO W CARDIOVASCULAR RISK <40 mg/dl - HIGH CARDIOVASCULAR RISK Normal [facility] Comment on above: Performed By: #### T SH, T4, CMP, LIPID #### [facility] [address] [address] [address] Rosalva Cox LDL CALC NORMAL SEE BELOW Normal [facility] Comment on above: Result Comment: <100 mg/dl OPTIMAL 100 - 129 mg/dl NEAR OR ABOVE OPTIMAL 130 - 159 mg/dl BORDERLINE HIGH 160 - 189 mg/dl HIGH >190 mg/dl VERY HIGH Performed By: #### T SH, T4, CMP, LIPID #### [facility] [address] [address] [address] Rosalva Cox Triglyceride [Mass/Vol] 357 mg/dL Critically high <=150 [facility] Comment on above: Performed By: #### T SH, T4, CMP, LIPID #### [facility] [address] [address] [address] Rosalva Cox VLDL CALC 71.4 mg/dL Normal [facility] Comment on above: Performed By: #### T SH, T4, CMP, LIPID #### [facility] [address] [address] [address] Rosalva Cox PROF 14(COMP METB)on 023 Albumin [Mass/Vol] 4.3 g/dL Normal 3.4-5.0 [facility] Comment on above: Performed By: #### T SH, T4, CMP, LIPID #### [facility] [address] [address] [address] Rosalva Cox Albumin/Globulin [Mass ratio] 1.0 {ratio} Normal [facility] Comment on above: Performed By: #### T SH, T4, CMP, LIPID #### [facility] [address] [address] [address] Rosalva Cox ALP [Catalytic activity/Vol] 158 U/L Critically high 46-116 [facility] Comment on above: Performed By: #### T SH, T4, CMP, LIPID #### [facility] [address] [address] [address] Rosalva Cox ALT [Catalytic activity/Vol] 64 U/L Critically high 14-59 [facility] Comment on above: Performed By: #### T SH, T4, CMP, LIPID #### [facility] [address] [place] [address] Dr. Rosalva Cox Anion gap [Moles/Vol] 12.7 mmol/L Normal [facility] Comment on above: Performed By: #### T SH, T4, CMP, LIPID #### [facility] [address] [address] [address] Rosalva Cox AST [Catalytic activity/Vol] 79 U/L Critically high 15-37 [facility] Comment on above: Performed By: #### T SH, T4, CMP, LIPID #### [facility] [address] [address] [address] Rosalva Cox Bilirubin [Mass/Vol] 0.6 mg/dL Normal 0.2-1.0 [facility] Comment on above: Performed By: #### T SH, T4, CMP, LIPID #### [facility] [address] [address] [address] Rosalva Cox Calcium [Mass/Vol] 9.7 mg/dL Normal 8.5-10.1 [facility] Comment on above: Performed By: #### T SH, T4, CMP, LIPID #### [facility] [address] [address] [address] Rosalva Cox Chloride [Moles/Vol] 102 mmol/L Normal 98-107 [facility] Comment on above: Performed By: #### T SH, T4, CMP, LIPID #### [facility] [address] [address] [address] Rosalva Cox CO2 [Moles/Vol] 30.3 mmol/L Normal 21.0-32.0 [facility] Comment on above: Performed By: #### T SH, T4, CMP, LIPID #### [facility] [address] [place] [address] Dr. Rosalva Cox Creatinine [Mass/Vol] 0.76 mg/dL Normal 0.55-1.02 [facility] Comment on above: Performed By: #### T SH, T4, CMP, LIPID #### [facility] [address] [place] [address] Dr. Rosalva Cox EGFR-AF CAMEROONIAN >60 Normal >=60 [facility] Comment on above: Performed By: #### T SH, T4, CMP, LIPID #### [facility] [address] [address] [address] Rosalva Cox EGFR-NON AF CAMEROONIAN >60 Normal >=60 [facility] Comment on above: Performed By: #### T SH, T4, CMP, LIPID #### [facility] [address] [place] [address] Dr. Rosalva Cox Globulin (S) [Mass/Vol] 4.3 g/dL Normal [facility] Comment on above: Performed By: #### T SH, T4, CMP, LIPID #### [facility] [address] [address] [address] Rosalva Cox Glucose [Mass/Vol] 112 mg/dL Critically high 74-106 [facility] Comment on above: Performed By: #### T SH, T4, CMP, LIPID #### [facility] [address] [place] [address] Dr. Rosalva Cox Potassium [Moles/Vol] 4.0 mmol/L Normal 3.5-5.1 [facility] Comment on above: Performed By: #### T SH, T4, CMP, LIPID #### [facility] [address] [place] [address] Dr. Rosalva Cox Protein [Mass/Vol] 8.6 g/dL Critically high 6.4-8.2 [facility] Comment on above: Performed By: #### T SH, T4, CMP, LIPID #### [facility] [address] [place] [address] Dr. Rosalva Cox Sodium [Moles/Vol] 141 mmol/L Normal 136-145 [facility] Comment on above: Performed By: #### T SH, T4, CMP, LIPID #### [facility] [address] [place] [address] Dr. Rosalva Cox Urea nitrogen [Mass/Vol] 17.0 mg/dL Normal 7.0-18.0 [facility] Comment on above: Performed By: #### T SH, T4, CMP, LIPID #### [facility] [address] [place] [address] Dr. Rosalva Cox Urea nitrogen/Creatinin e [Mass ratio] 22.4 mg/mg Normal [facility] Comment on above: Performed By: #### T SH, T4, CMP, LIPID #### [facility] [address] [place] [address] Dr. Rosalva Cox T4on 01-07-2023 T4 [Mass/Vol] 7.50 ug/dL Normal 4.80-13.90 [facility] Comment on above: Performed By: #### T SH, T4, CMP, LIPID #### [facility] [address] [place] [address] Dr. Rosalva Cox TSHon 01-07-2023 TSH 0.868 uIU/mL Normal 0.358-3.740 [facility] Comment on above: Performed By: #### T SH, T4, CMP, LIPID #### [facility] [address] [place] [address] Dr. Rosalva Cox INFLUENZA A AND B AGon 09-27 INFLUANEGH SEE BELOW Normal [facility] Comment on above: Result Comment: Nega tive for Flu A protein angiten. Infection due to Flu A cannot be ruled out. Flu A angiten in the sample may be below the detection limit of the test. Performed By: #### I NFLUAB #### [facility] [address] [place] [address] Dr. Rosalva Cox [facility] SEE BELOW Normal [facility] Comment on above: Result Comment: Nega tive for Flu B protein antigen. Infection due to Flu B cannot be ruled out. Flu B antigen in the sample may be below the detection limit of the test. Performed By: #### I NFLUAB #### [facility] [address] [place] [address] Dr. Rosalva Cox INFLUENZA A AG Negative Normal NEGATIVE SEE COMMENT [facility] Comment on above: Performed By: #### I NFLUAB #### [facility] [address] [place] [address] Dr. Rosalva Cox INFLUENZA B AG Negative Normal NEGATIVE SEE COMMENT [facility] Comment on above: Performed By: #### I NFLUAB #### [facility] [address] [place] [address] Dr. Rosalva Cox [facility] 09[facility]06 SARS-CoV-2 (COVID-19) RNA VALERY+probe Ql (Unsp spec) Not detected Normal NOT DETECTED [facility] Comment on above: Result Comment: When [...] for this test is supported by the [employer] and Human Service's declaration that [...] used). Performed By: #### C VDTBH #### [facility] [address] [address] [address] Rosalva Bailey 02-18-2022 CNPN Telephone (HEMASA) KEVEN ROBB ([id number]) 1975 F Date Time Provider Department 02/18/22 ANNEMARIE CINTRON During your visit today, we recorded the following information about you: Annemarie Cintron RN 02/18/2022 12:03 PM Signed Received call [...] Status:Closed by ANNEMARIE GILLILAND on 02/23/22 Normal [facility] Vital Signs Date Time Vital Sign Value Performing Clinician Facility 07-26-2023 13:30-0500 Body height 172.72 cm Imad Asaad Other [employer] Other 07-26-2023 13:30-0500 Body mass index (BMI) [Ratio] 23.72 kg/m2 Imad Asaad Other [employer] Other 07-26-2023 13:30-0500 Body weight 70.76 kg Imad Asaad Other [employer] Other 07-26-2023 13:30-0500 Diastolic blood pressure 70 mm[Hg] Imad Asaad Other [employer] Other 07-26-2023 13:30-0500 Systolic blood pressure 118 mm[Hg] Imad Asaad Other [employer] Other Encounters Encounter Date Encounter Type Care Provider Facility Start: 04-27-2024 End: 04-27-2024 ambulatory MONSE JIMENEZ Not Available Start: 01-23-2024 End: 01-23-2024 ambulatory MONSE JIMENEZ Not Available Start: 09-20-2023 End: 09-20-2023 ambulatory MONSE JIMENEZ Not Available Start: 08-23-2023 End: 08-23-2023 ambulatory MONSE JIMENEZ Not Available Start: 07-26-2023 End: 07-26-2023 ambulatory Imad Asaad Other [employer] Other Start: 07-26-2023 Office outpatient ne w 45 minutes Imad Asaad [facility] Start: 01-07-2023 End: 01-08-[address] MONSE JIMENEZ Facility:[facility] Start: 09-27-2022 End: 09-27-2022 ambulatory BINDU MCCOLLUM Facility:[facility] Start: 09-26-2022 End: 09-26-2022 ambulatory BINDU MCCOLLUM Facility:[facility] Start: 02-18-2022 Telephone encounter Annemarie Cintron RN Hematology/Oncology Comment on above: Appointment; Breast Problem Plan of Treatment Date Care Activity Detail Author Start: 05-06-2022 Influenza vaccination INFLUENZA (Sea son Ended) [facility] Start: 2019 COLOGUARD (FIT-DNA) COLOGUARD (FIT-D NA) [facility] Start: 2019 Colonoscopy COLONOSCOPY [facility] Start: 2019 COLORECTAL CANCER SCREENING COLORECTAL CANCER SCREENING [facility] Start: [address] COLONOGRAPHY [facility] Start: 2019 DIABETES SCREEN DIABETES SCREEN [facility] Start: 2019 FECAL OCCULT BLOOD FECAL OCCULT BLOO D [facility] Start: 2019 LIPID SCREEN LIPID SCREEN [facility] Start: 2019 SIGMOIDOSCOPY SIGMOIDOSCOPY [facility] Start: 2014 Mammography MAMMOGRAM [facility] Start: 2004 HPV TESTING HPV TESTING [facility] Start: 1995 PAP TESTING PAP TESTING [facility] Start: 1993 Urine microalbumin profile DTAP,TDAP ,TD (1 - Tdap) [facility] Start: 1992 HEPATITIS C SCREENING HEPATITIS C SC REENING [facility] Start: 1992 HIV SCREENING HIV SCREENING [facility] Start: 1986 Adult depression scr eening assessment DEPRESSION SCREENING [facility] Start: 1979 COVID-19 VACCINE (#1) COVID-19 VACCI NE (#1) [facility] Payers Date Payer Category Payer Unknown [id number] 2019 Unknown MMO MMO [employer] [id number] 2019-Present [phone] [address] [place] [address] PPO [id number] 1975 Unknown [id number] 1975 Unknown [id number] 1975 Unknown [id number] 1975 Unknown [id number] 1975 Unknown [id number] 1975 Unknown [id number] 1960 Self-pay 1960 Unknown [id number] Unknown [id number] Social History Date Type Detail Facility Start: 12-14-2016 Tobacco smoking status ILIS Smokes tobacco daily [facility] History of tobacco use Cigarette Smoker [facility] Start: 12-14-2016 Tobacco use and exposure Smokeless tobacco non-user [facility] Start: 09-14-2019 Alcohol intake 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 Jul, Weight loss, unintentional (ICD-10 - R63.4) PATIENT HAS [employer] Other Note 02-22-2022 Telephone Encounter - Efrain [...] like her to see her PCP. Annemarie Cintron RN documented in this encounter [facility] History general Narrative - Reported 11-02-2016 Note [...] breast reconstruction 04/2017 Surgical History Right breast rag shredder replaced 04/2017 Surgical History Breast implant surgery 08/2017 Surgical History Hospitalization History childbirth [employer] Other Summary Purpose Family History No Family [...] or prosecute any alcohol or drug abuse patient.[facility] Reason for Visit (unrecogniz ed section and content) Reason Comments Appointment Breast Problem INFORMATION SOURCE (unrecogn ized section and content) DATE CREATED AUTHOR 02/24/2022 [facility] DATE CREATED AUTHOR AUTHOR'S ORGANIZ ATION 01/08/[address] [facility] DATE CREATED AUTHOR AUTHOR'S ORGANIZ ATION 04/29/2024 [facility] FOR RECORDS PERTAINING TO PATIENTS WHO ARE [...] BE BASED ON THE PRIMARY CLINICAL RECORDS. [facility]. provides no warranty or guarantee of the accuracy or completeness of information in this document.
== END 2024-05-01 11:19 | disposition home or self-care (01) ==
LOC: RAD 11:19
PROVIDERS: PCP Family Medicine; Visit Provider Internal Medicine
DX: R09.1 Pleurisy (principal)
CPT/HCPCS: 71046

== ENCOUNTER 2024-05-16 13:51 | Outpatient (OUT) | payer BC, OTHER, SELFPAY ==
--- NOTE | 2024-05-16 | CT_ITS ---
The [address] [address] Patient Name: KEVEN ROBB MRN: [id number] date: 1975 Sex: F Assigned Patient Location: CT Current Patient Location: Accession/Order Number: [id number] Exam Date: 05/16/2024 13:58 Report Date: 05/18/2024 04:53 At the request of: NEERAJ LYNN Procedure: CT chest high res EXAMINATION: CT chest high res HISTORY: R09.1 COMPARISON: No relevant comparison available. TECHNIQUE: Axial images were obtained at 10 mm intervals during inspiration and expiration in the supine and prone positions. No IV contrast given. Dose reduction techniques were achieved by using automated exposure control and/or adjustment of mA and/or kV according to patient size and/or use of iterative reconstruction technique. FINDINGS: LUNGS: No significant chronic interstitial changes, fibrosis, air trapping, bronchiectasis, or mucous plugging. No acute infiltrates or suspicious nodules. PLEURA: No mass, effusion, or pneumothorax. NHI: No mass or adenopathy. MEDIASTINUM: No mass or adenopathy. HEART: No significant enlargement or pericardial effusion.. Coronary arteries: AORTA: No aneurysm.. CHEST WALL: No mass or axillary adenopathy LIMITED ABDOMEN: No suspicious findings. Limited images of the upper abdomen. OTHER: Negative. CT/CT chest high res IMPRESSION: 1. No significant chronic interstitial changes within the lungs or acute findings. Electronically authenticated by: JOSE ENRIQUEZ Date: 05/18/2024 04:53
== END 2024-05-16 13:52 | disposition home or self-care (01) ==
LOC: CT 13:51
PROVIDERS: PCP Family Medicine; Visit Provider Internal Medicine
DX: R09.1 Pleurisy (principal)
CPT/HCPCS: 71250

== ENCOUNTER 2025-03-19 08:46 | Outpatient (RCR) | payer BC, OTHER, SELFPAY ==
[2025-03-19 14:13] LABS: Hematocrit 43.3 % (36.0-48.0); Hemoglobin 14.3 g/dL (12.0-16.0); Immature Granulocytes Abs Auto 0.01 10^3/uL (0.00-0.03); Immature Granulocytes Pct Auto 0.1 % (0.0-0.5); Lymphocytes Absolute Auto 2.1 10^3/uL (1.2-3.8); Mean Corpuscular HGB Conc 33.0 g/dL (29.9-35.2); Mean Corpuscular Hemoglobin 29.4 pg (26.7-34.0); Mean Corpuscular Volume 88.9 fL (81.0-99.0); Platelet Count 243 10^3/uL (150-450); Red Blood Count 4.87 10^6/uL (4.20-5.40); White Blood Count 7.8 10^3/uL (4.0-11.0)
[2025-03-19 14:25] LABS: Alanine Aminotransferase 32 U/L (14-59); Albumin Globulin Ratio 1.1; Albumin Level 4.0 g/dL (3.4-5.0); Alkaline Phosphatase 170 U/L (46-116); Anion Gap 8.1; Aspartate Amino Transferase 21 U/L (15-37); Blood Urea Nitrogen 14.0 mg/dL (7.0-18.0); Calcium 9.1 mg/dL (8.5-10.1); Carbon Dioxide 32.2 mmol/L (21.0-32.0); Chloride 104 mmol/L (98-107); Estimated GFR (African America >60 (>=60 mL/min/1.73m^2); Estimated GFR (Non-African Ame >60 (>=60 mL/min/1.73m^2); Globulin 3.6 g/dL; Glucose 88 mg/dL (74-106); Potassium 3.3 mmol/L (3.5-5.1); Sodium 141 mmol/L (136-145); Total Protein 7.6 g/dL (6.4-8.2)
[2025-03-20 04:07] LABS: CA 15-3 7.1 U/mL (0.0-25.0); FSH 102.0 mIU/mL (.)
[2025-03-20 05:08] LABS: CA 27.29 <9.0 U/mL (0.0-38.6)
== END 2025-04-04 23:59 | disposition home or self-care (01) ==
LOC: HEMC 08:46
PROVIDERS: PCP Family Medicine; Visit Provider Internal Medicine Hematology & Oncology
DX: C50.911 Malignant neoplasm of unspecified site of right female breast (principal); R07.82 Intercostal pain; R10.12 Left upper quadrant pain; M25.551 Pain in right hip; Z17.0 Estrogen receptor positive status [ER+]; Z17.32 Human epidermal growth factor receptor 2 negative status; F17.210 Nicotine dependence, cigarettes, uncomplicated; Z90.13 Acquired absence of bilateral breasts and nipples; K21.9 Gastro-esophageal reflux disease without esophagitis
CPT/HCPCS: 36415; 80053; 82670; 83001; 85025; 86300; G0463